=== PATIENT | male | born 1935 | race Caucasian/White ===

== ENCOUNTER → 2023-05-17 08:52 | Outpatient (REF) | payer MEDICARE, SELFPAY ==
[2023-05-17 10:51] LABS: TSH Reflex To Free T4 1.84 uIU/ml (0.47-4.68)
[2023-05-17 10:55] LABS: Ferritin 63.5 ng/ml (17.9-464.0)
[2023-05-17 11:26] LABS: Folate 10.7 ng/ml (2.76-20); Vitamin B12 337 pg/ml (239-931)
[2023-05-17 12:13] LABS: Glycohemoglobin (HgbA1c) 5.7 % (4.0-5.6)
[2023-05-19 04:07] LABS: ANA, IgG Reflex to HEp-2 None Detected (None Detected)
[2023-05-19 14:13] LABS: Copper, Serum 92.8 ug/dL (70.0-140.0)
[2023-05-19 17:04] LABS: Lyme Disease DNA by PCR Not Detected; Lyme Source Serum
[2023-05-22 23:39] LABS: Zinc, RBC's Result 1282.2 mcg/dL (794.0-1470.0)
[2023-05-23 05:46] LABS: Cryoglobulin NEG 72Hour (NEG 72Hour)
== END ==
LOC: REG 08:52
PROVIDERS: ATTENDING PHYSICIAN Psychiatry & Neurology Neurology; FAMILY PHYSICIAN Family Medicine
DX: R20.9 Unspecified disturbances of skin sensation (principal); E61.1 Iron deficiency; Z79.899 Other long term (current) drug therapy
CPT/HCPCS: 36415; 82525; 82595; 82607; 82728; 82746; 83036; 84443; 84630; 86038; 86140; 87476

== ENCOUNTER → 2023-05-19 09:46 | Outpatient (REF) | payer MEDICARE, SELFPAY ==
[2023-05-19 10:39] LABS: Urine Protein 9 mg/dl (0-12)
[2023-05-19 11:38] LABS: 24 Hour Urine Creatinine 1.258 gm/day (1.0-2.0); 24 Hour Urine Total Volume 1300 ml
== END ==
LOC: REG 09:46
PROVIDERS: ATTENDING PHYSICIAN Psychiatry & Neurology Neurology; FAMILY PHYSICIAN Family Medicine
DX: R20.9 Unspecified disturbances of skin sensation (principal)
CPT/HCPCS: 81050; 82570; 84156

== ENCOUNTER → 2023-10-25 10:38 | Outpatient (REF) | payer MEDICARE, SELFPAY ==
[2023-10-25 16:13] LABS: Blood Urea Nitrogen 30 mg/dl (9-20)
== END ==
LOC: HWLAB 10:38
PROVIDERS: ATTENDING PHYSICIAN Physical Medicine & Rehabilitation Pain Medicine; FAMILY PHYSICIAN Physician Assistant Medical
DX: Z01.812 Encounter for preprocedural laboratory examination (principal); N28.9 Disorder of kidney and ureter, unspecified
CPT/HCPCS: 36415; 82565; 84520

== ENCOUNTER → 2023-12-01 11:09 | Outpatient (REF) | payer MEDICARE, SELFPAY | LOC: RAD 11:09 | PROVIDERS: ATTENDING PHYSICIAN Radiology Diagnostic Radiology; FAMILY PHYSICIAN Physician Assistant Medical | DX: Z95.0 Presence of cardiac pacemaker (principal) | CPT/HCPCS: 71046 ==

== ENCOUNTER → 2024-02-03 13:22 | Outpatient (REF) | payer MEDICARE, SELFPAY | LOC: MRI 13:22 | PROVIDERS: ATTENDING PHYSICIAN Physical Medicine & Rehabilitation Pain Medicine; FAMILY PHYSICIAN Physician Assistant Medical | DX: M54.16 Radiculopathy, lumbar region (principal) | CPT/HCPCS: 72148 ==

== ENCOUNTER → 2024-03-05 09:13 | Outpatient (REF) | payer MEDICARE, SELFPAY ==
[2024-03-05 10:13] LABS: NT-proBNP 3880 pg/ml
[2024-03-05 10:36] LABS: ALT (SGPT) 13 U/L (0-50); AST (SGOT) 20 U/L (17-59); Albumin 4.7 g/dl (3.5-5.0); Alkaline Phosphatase 61 U/L (38-126); Blood Urea Nitrogen 20 mg/dl (9-20); Calcium 10.3 mg/dl (8.4-10.2); Carbon Dioxide 23 mmol/L (22-30); Chloride 105 mmol/L (98-107); Glucose 101 mg/dl (70-99); Potassium 5.1 mmol/L (3.5-5.1); Sodium 139 mmol/L (135-145); Total Bilirubin 0.8 mg/dl (0.2-1.3); Total Protein 7.3 g/dl (6.3-8.2); eGFR 41.44
== END ==
LOC: RAD 09:13
PROVIDERS: ATTENDING PHYSICIAN Internal Medicine Cardiovascular Disease; FAMILY PHYSICIAN Physician Assistant Medical
DX: I10 Essential (primary) hypertension (principal); I48.19 Other persistent atrial fibrillation; Z86.711 Personal history of pulmonary embolism
CPT/HCPCS: 36415; 71046; 80053; 83880

== ENCOUNTER → 2024-03-19 08:18 | Outpatient (REF) | payer MEDICARE, SELFPAY ==
[2024-03-19 10:02] LABS: Blood Urea Nitrogen 32 mg/dl (9-20); Calcium 10.2 mg/dl (8.4-10.2); Carbon Dioxide 24 mmol/L (22-30); Chloride 100 mmol/L (98-107); Glucose 99 mg/dl (70-99); Potassium 4.3 mmol/L (3.5-5.1); Sodium 138 mmol/L (135-145); eGFR 33.72
== END ==
LOC: HWLAB 08:18
PROVIDERS: ATTENDING PHYSICIAN Internal Medicine Cardiovascular Disease; FAMILY PHYSICIAN Physician Assistant Medical
DX: I25.10 Atherosclerotic heart disease of native coronary artery without angina pectoris (principal); I10 Essential (primary) hypertension; Z86.711 Personal history of pulmonary embolism; I48.19 Other persistent atrial fibrillation; J90 Pleural effusion, not elsewhere classified
CPT/HCPCS: 36415; 80048

== ENCOUNTER → 2024-03-23 12:54 | Outpatient (REF) | payer MEDICARE, SELFPAY | LOC: HWRCS 12:54 | PROVIDERS: ATTENDING PHYSICIAN Internal Medicine Cardiovascular Disease; FAMILY PHYSICIAN Physician Assistant Medical | DX: I48.19 Other persistent atrial fibrillation (principal) | CPT/HCPCS: 93306 ==

== ENCOUNTER → 2024-04-04 10:00 | Outpatient (REF) | payer MEDICARE, SELFPAY ==
[2024-04-04 11:34] LABS: Erythrocyte Sed Rate 17 mm/hour (0-20)
[2024-04-04 11:35] LABS: Creatine Phosphokinase 31 U/L (55-170); Iron 114 ug/dl (49-181)
[2024-04-04 11:44] LABS: Percent Saturation 37 % (20-50); Total Iron Binding Capacity 304 ug/dl (261-462)
[2024-04-04 12:08] LABS: TSH Reflex To Free T4 1.43 uIU/ml (0.47-4.68)
[2024-04-04 12:43] LABS: Vitamin B12 814 pg/ml (239-931)
[2024-04-04 12:47] LABS: Glycohemoglobin (HgbA1c) 5.6 % (4.0-5.6)
[2024-04-05 13:13] LABS: Lyme Antibody Screen, EIA Negative (Negative)
[2024-04-06 03:15] LABS: Aldolase 4.1 U/L (1.2-7.6)
[2024-04-06 09:42] LABS: SSA 52 (Ro)(ENA) Ab, IgG 2 AU/mL (0-40); SSA 60 (Ro)(ENA) Ab, IgG 0 AU/mL (0-40); SSB (La)(ENA) Ab, IgG 1 AU/mL (0-40)
== END ==
LOC: RAD 10:00
PROVIDERS: ATTENDING PHYSICIAN Internal Medicine Cardiovascular Disease; FAMILY PHYSICIAN Physician Assistant Medical; REFERRING PHYSICIAN Psychiatry & Neurology Neurology
DX: I10 Essential (primary) hypertension (principal); Z86.711 Personal history of pulmonary embolism; J90 Pleural effusion, not elsewhere classified; Z79.899 Other long term (current) drug therapy; R74.8 Abnormal levels of other serum enzymes; Z74.09 Other reduced mobility
CPT/HCPCS: 36415; 71046; 82085; 82550; 82607; 82746; 83036; 83540; 83550; 84155; 84165; 84207; 84425; 84443; 84446; 85652; 86235; 86618

== ENCOUNTER → 2024-04-20 09:23 | Outpatient (REF) | payer MEDICARE, SELFPAY ==
[2024-04-20 10:38] LABS: Blood Urea Nitrogen 38 mg/dl (9-20); Calcium 10.4 mg/dl (8.4-10.2); Carbon Dioxide 23 mmol/L (22-30); Chloride 103 mmol/L (98-107); Glucose 104 mg/dl (70-99); Potassium 4.8 mmol/L (3.5-5.1); Sodium 138 mmol/L (135-145); eGFR 31.71
[2024-04-22 21:44] LABS: 24 Hour Urine Total Volume Random mL; Urine Collection Length Random hr; Urine Free Kappa Light Chains 37.46 mg/L (0.00-32.90); Urine Free Lambda Light Chains 8.05 mg/L (0.00-3.79)
== END ==
LOC: REG 09:23
PROVIDERS: ATTENDING PHYSICIAN Internal Medicine Cardiovascular Disease; FAMILY PHYSICIAN Physician Assistant Medical
DX: I48.19 Other persistent atrial fibrillation (principal)
CPT/HCPCS: 36415; 80048; 83521; 84156; 86335

== ENCOUNTER → 2024-05-05 10:22 | Outpatient (REF) | payer MEDICARE, SELFPAY | LOC: RCS 10:22 | PROVIDERS: ATTENDING PHYSICIAN Internal Medicine Cardiovascular Disease; FAMILY PHYSICIAN Physician Assistant Medical | DX: I50.32 Chronic diastolic (congestive) heart failure (principal) | CPT/HCPCS: 93306; 93356 ==

== ENCOUNTER → 2024-07-16 11:56 | Outpatient (REF) | payer MEDICARE, SELFPAY ==
[2024-07-16 13:22] LABS: Blood Urea Nitrogen 39 mg/dl (9-20); Calcium 10.8 mg/dl (8.4-10.2); Carbon Dioxide 24 mmol/L (22-30); Chloride 103 mmol/L (98-107); Glucose 108 mg/dl (70-99); Potassium 4.9 mmol/L (3.5-5.1); Sodium 141 mmol/L (135-145); eGFR 31.71
[2024-07-16 13:31] LABS: NT-proBNP 3960 pg/ml
== END ==
LOC: REG 11:56
PROVIDERS: ATTENDING PHYSICIAN Internal Medicine Cardiovascular Disease; FAMILY PHYSICIAN Physician Assistant Medical
DX: I10 Essential (primary) hypertension (principal); E78.00 Pure hypercholesterolemia, unspecified
CPT/HCPCS: 36415; 80048; 83880

== ENCOUNTER → 2024-09-24 14:33 | Outpatient (REF) | payer MEDICARE, SELFPAY | LOC: HWRAD 14:33 | PROVIDERS: ATTENDING PHYSICIAN Internal Medicine; FAMILY PHYSICIAN Physician Assistant Medical | DX: N18.32 Chronic kidney disease, stage 3b (principal) | CPT/HCPCS: 76770 ==

== ENCOUNTER → 2024-10-17 13:01 | Outpatient (REF) | payer MEDICARE, SELFPAY | LOC: HWRAD 13:01 | PROVIDERS: ATTENDING PHYSICIAN Psychiatry & Neurology Neurology; FAMILY PHYSICIAN Physician Assistant Medical | DX: G95.20 Unspecified cord compression (principal) | CPT/HCPCS: 72128 ==

== ENCOUNTER → 2024-11-28 11:08 | Outpatient (REF) | payer MEDICARE, SELFPAY ==
[2024-11-28 12:43] LABS: Albumin 4.8 g/dl (3.5-5.0); Blood Urea Nitrogen 27 mg/dl (9-20); Calcium 10.3 mg/dl (8.4-10.2); Carbon Dioxide 24 mmol/L (22-30); Chloride 108 mmol/L (98-107); Glucose 91 mg/dl (70-99); Potassium 4.5 mmol/L (3.5-5.1); Sodium 140 mmol/L (135-145); eGFR 41.19
[2024-11-28 12:54] LABS: Vitamin D, 25-OH*** 74.0 ng/mL (30-80)
== END ==
LOC: REG 11:08
PROVIDERS: ATTENDING PHYSICIAN Internal Medicine; FAMILY PHYSICIAN Physician Assistant Medical
DX: N18.32 Chronic kidney disease, stage 3b (principal); E83.52 Hypercalcemia
CPT/HCPCS: 36415; 80069; 82306; 82570; 83970; 84156

== ENCOUNTER → 2024-12-06 13:38 | Outpatient (REF) | payer MEDICARE, SELFPAY | LOC: HWRAD 13:38 | PROVIDERS: ATTENDING PHYSICIAN Nurse Practitioner; FAMILY PHYSICIAN Physician Assistant Medical | DX: G95.20 Unspecified cord compression (principal) | CPT/HCPCS: 72125 ==

== ENCOUNTER → 2024-12-26 12:13 | Outpatient (REF) | payer MEDICARE, SELFPAY ==
[2024-12-26 13:55] LABS: Blood Urea Nitrogen 29 mg/dl (9-20); Calcium 10.3 mg/dl (8.4-10.2); Carbon Dioxide 24 mmol/L (22-30); Chloride 107 mmol/L (98-107); Glucose 90 mg/dl (70-99); Potassium 5.2 mmol/L (3.5-5.1); Sodium 139 mmol/L (135-145); eGFR 35.76
== END ==
LOC: REG 12:13
PROVIDERS: ATTENDING PHYSICIAN Internal Medicine Cardiovascular Disease; FAMILY PHYSICIAN Physician Assistant Medical
DX: I10 Essential (primary) hypertension (principal); I50.32 Chronic diastolic (congestive) heart failure; I25.10 Atherosclerotic heart disease of native coronary artery without angina pectoris; N18.32 Chronic kidney disease, stage 3b
CPT/HCPCS: 36415; 80048; 83880